=== PATIENT | male | born 1980 | race African-American/Black ===

== ENCOUNTER 2023-03-29 19:43 | Emergency (ER) | payer MEDICAID, OTHER, SELFPAY ==
--- NOTE | ~2023-03-29 | XR_ITS ---
EXAMINATION: XR CHEST 2 VIEWS CLINICAL INFORMATION: Chest pain. COMPARISON: None. TECHNIQUE: Frontal and lateral views of the chest were obtained. FINDINGS: The heart, great vessels, pulmonary vasculature and mediastinum are normal. The lungs show no focal infiltrate, effusion or pneumothorax. There is no acute osseous abnormality. XR/XR chest 2V IMPRESSION: No active cardiopulmonary disease.
--- NOTE | 2023-03-29 19:49 | ECG_ITS ---
Test Reason : chest pain Blood Pressure : / mmHG Vent. Rate : 100 BPM Atrial Rate : 100 BPM P-R Int : 158 ms QRS Dur : 076 ms QT Int : 320 ms P-R-T Axes : 058 060 043 degrees QTc Int : 412 ms Normal sinus rhythm Normal ECG No previous ECGs available Referred By: Hanna lAva Electronically Signed By:CASSI DORMAN
--- NOTE | 2023-03-29 20:01 | ED_ITS ---
HPI - Chest Pain General Chief Complaint: Chest Pain Stated Complaint: chest and back pain Time Seen by Provider: 03/29/23 22:31 Source: patient Mode of arrival: ambulatory History of Present Illness HPI narrative: This is a 42-year-old male who arrives with complaints of left-sided chest pain and states that each day he carries heavy equipment on the left side side he denies any association diaphoresis, nausea, dizziness and states that the pain does not worsen with deep breath. He otherwise denies any fever, chills, nausea, vomiting. Related Data Allergies Allergy/AdvReac Type Severity Reaction Status Date / Time No Known Allergies Allergy Verified 03/29/23 20:07 Review of Systems 2 Review of Systems: Pertinent positives and negatives as stated in HPI [facility] Past Medical History Source: nursing notes reviewed Social History Social History Smoked in Last 30 Days: No Use of substances other than those prescribed or required for medical reasons: No Advance Directives: No Advance Directives Information Provided: No Physical Exam 2 Vital Signs: Vital Signs: Last Vital Signs Temp 98.5 F 03/30/23 01:38 Pulse 72 03/30/23 01:38 Resp 17 03/30/23 01:38 BP 136/94 H 03/30/23 01:38 Pulse Ox 99 03/30/23 01:38 O2 Del Method Room Air 03/30/23 01:38 BMI result Body Mass Index 23.5 VITAL SIGNS: Reviewed. GENERAL: Well developed, well nourished, in no acute distress. HEAD: Normocephalic/atraumatic EYES: PERRLA, EOMI EARS: Ext canals without abnormality NOSE: Nares patent bilateral OROPHARYNX: no oral lesions noted, posterior pharynx clear NECK: Supple, no adenopathy LUNGS: Normal breath sounds. No adventitious sounds or accessory muscle use. SpO2<98> CARDIOVASCULAR: Regular rate and rhythm without noted murmurs ABDOMEN: Soft, non-tender, non-distended with bowel sounds. MUSCULOSKELETAL: No tenderness, deformities, or effusions noted on gross inspection. EXTREMITIES: No cyanosis, clubbing or edema. SKIN: Inspection of the skin reveals no rashes NEUROLOGIC: Alert and oriented x 4. Strength and sensation to light touch were grossly intact x 4. Course Course Course Narrative: This is a rapid medical exam. Deferred additional HPi, ROS, PE to primary provider. 42 yo male with no known medical history here with complaints of left sided chest pain with radiation to the back, non pleuritic, nonexertional x 2 weeks w/ no associated symptoms. Will check labs, EKG, CXR VSS Medications Administered Discontinued Medications Generic Name Dose Route Start Last Admin Trade Name Deena PRN Reason Stop Dose Admin Acetaminophen 975 mg 03/29/23 23:20 03/30/23 00:51 Acetaminophen 325 Mg Tablet PO 03/29/23 23:21 975 mg ONCE ONE Administration Ibuprofen 400 mg 03/29/23 23:20 03/30/23 00:51 Ibuprofen 400 Mg Tablet PO 03/29/23 23:21 400 mg ONCE ONE Administration Medical Decision Making Medical Decision Making [facility] Narrative: 42-year-old male with history and clinical presentation, DDX: Musculoskeletal pain, very low clinical suspicion for pneumonia, pneumothorax or ACS. I reviewed all investigations and hematologic indices demonstrate a mild decrease in leukocytes, no anemia and no thrombocytopenia. Chemistry indices negative for electrolyte or liver enzyme abnormalities, there is no GAURAV and troponin is undetectable. Chest x-ray negative for infiltrate and otherwise my interpretation is in agreement with radiology's impression. EKG is normal sinus rhythm without evidence of ST-elevation. Is my interpretation that patient is experiencing musculoskeletal pain as the pain has been ongoing for 2 weeks and troponin is undetectable without EKG changes and patient endorses a history of having to carry heavy equipment on the left shoulder. Patient received combination analgesics and was discharged. Differential Diagnosis Differential Diagnoses: The differential diagnosis associated with the presentation includes Please see the discussion above Admission/Observation Consideration of admission/observation: Escalation of care including admission/observation considered Please see the discussion above Lab Data [facility] Lab Attestation statement: I reviewed the patient's lab results. Please see the discussion above 03/29/23 20:49 03/29/23 20:49 Labs: Lab Results 03/29/23 Range/Units 20:49 WBC 4.4 L (4.8-10.8) X10*3/uL RBC 5.57 (4.60-5.80) X10*6/uL Hgb 14.1 (14.0-18.0) g/dl Hct 40.6 L (42.0-52.0) % MCV 72.9 L (80.0-98.0) fL MCH 25.3 L (27.0-33.0) pg MCHC 34.7 (31.0-36.0) g/dl RDW 14.1 (11.0-16.0) % Plt Count 200 (160-400) X10*3/uL MPV 9.9 (9.4-12.4) fL Immature Gran % (Auto) 0.0 (0.0-0.4) % Neut % (Auto) 51.0 (45-73) % Lymph % (Auto) 36.8 (20-40) % Crowley % (Auto) 10.1 (2-11) % Eos % (Auto) 1.6 (0-4) % Baso % (Auto) 0.5 (0-2) % Lymph # (Auto) 1.6 (1.2-4.9) X10*3/uL Crowley # (Auto) 0.4 (0.1-1.2) X10*3/uL Eos # (Auto) 0.1 (0.0-0.4) X10*3/uL Baso # (Auto) 0.0 (0.0-0.2) X10*3/uL Abs Immat Gran (auto) 0.00 (0.00-0.03) X10*3/uL Absolute Neuts (auto) 2.2 (2.0-8.3) x10*3/uL Absolute Nucleated RBC 0.000 (0.0-0.012) X10*3/uL Nucleated RBC % (auto) 0.0 (0.0-0.2) /100WBC Sodium 142 (135-145) mmol/L Potassium 4.7 (3.3-5.1) mmol/L Chloride 105 (96-108) mmol/L Carbon Dioxide 31 H (22-29) mmol/L Anion Gap 11 L (12-20) BUN 13 (9-16) mg/dL Creatinine 1.15 (0.5-1.4) mg/dL Estim Creat Clear Calc 88.2 Estimated GFR > 60 Random Glucose 95 (60-115) mg/dL Calcium 9.8 (8.4-10.2) mg/dL Total Bilirubin 0.3 (0.0-1.0) mg/dL Direct Bilirubin 0.1 (0.0-0.5) mg/dL AST 25 (5-37) U/L ALT 32 (0-40) U/L Alkaline Phosphatase 126 H (39-117) U/L Troponin I High Sens < 2.7 (<3.5-35.0) ng/L Total Protein 7.3 (6.5-8.0) g/dL Albumin 4.0 (3.5-5.0) g/dL Independent Interpretation I performed an independent interpretation of an: EKG Interpretation: Normal sinus rhythm, HR-100, no STEMI, NC/QRS/QTC is within normal limits. Radiology Impression Discussion of test interpretation with radiology: I have reviewed the radiologist's reading. Radiologist Impression: Please see the discussion above Discharge Plan Discharge Clinical Impression: Atypical chest pain, Musculoskeletal pain Instructions: Musculoskeletal Pain (ED), Chest Wall Pain (ED) Additional Instructions: 1. Tylenol 1000 mg, orally, every 6 hours as needed for pain control. Do not exceed 4000 mg within 24 hours. 2. Ibuprofen 400 mg, orally with milk or food, every 6 hours as needed for pain control. 3. Please follow-up with your primary care doctor in the next 1-2 days for re- evaluation and outpatient. Return to the ER for any worsening symptoms.
[2023-03-29 20:04] VITALS: BP 143/84; PULSE 96; RESP 16; TEMP 37.1; O2SAT 98; BMI 23.5
[2023-03-29 20:53] LABS: MANUAL DIFF FLAG NO
[2023-03-29 21:02] LABS: Basophils Percent Auto 0.5 % (0-2); Eosinophils Absolute Auto 0.1 X10*3/uL (0.0-0.4); Eosinophils Percent Auto 1.6 % (0-4); Hematocrit 40.6 % (42.0-52.0); Hemoglobin 14.1 g/dl (14.0-18.0); Lymphocytes Absolute Auto 1.6 X10*3/uL (1.2-4.9); Lymphocytes Percent Auto 36.8 % (20-40); Mean Corpuscular HGB Conc 34.7 g/dl (31.0-36.0); Mean Corpuscular Hemoglobin 25.3 pg (27.0-33.0); Mean Corpuscular Volume 72.9 fL (80.0-98.0); Mean Platelet Volume 9.9 fL (9.4-12.4); Monocytes Absolute Auto 0.4 X10*3/uL (0.1-1.2); Monocytes Percent Auto 10.1 % (2-11); Neutrophils Absolute Auto 2.2 x10*3/uL (2.0-8.3); Platelet Count 200 X10*3/uL (160-400); Red Blood Count 5.57 X10*6/uL (4.60-5.80); Red Cell Distribution Width 14.1 % (11.0-16.0); White Blood Count 4.4 X10*3/uL (4.8-10.8)
[2023-03-29 21:13] LABS: Alanine Aminotransferase 32 U/L (0-40); Alkaline Phosphatase 126 U/L (39-117); Anion Gap 11 (12-20); Aspartate Amino Transferase 25 U/L (5-37); Bilirubin Direct 0.1 mg/dL (0.0-0.5); Bilirubin Total 0.3 mg/dL (0.0-1.0); Blood Urea Nitrogen 13 mg/dL (9-16); Calcium 9.8 mg/dL (8.4-10.2); Carbon Dioxide 31 mmol/L (22-29); Chloride 105 mmol/L (96-108); Creatinine Clr Calc Pharmacy 88.2; Estimated Glomerular Filt Rate > 60; Glucose Random 95 mg/dL (60-115); Potassium 4.7 mmol/L (3.3-5.1); Sodium 142 mmol/L (135-145); Total Protein 7.3 g/dL (6.5-8.0)
[2023-03-29 21:22] LABS: Troponin-I High Sensitivity < 2.7 ng/L (<3.5-35.0)
[2023-03-30 00:11] VITALS: RESP 18
[2023-03-30] MEDS: Ibuprofen 400 MG TABLET PO (00:51)
[2023-03-30] MEDS: Acetaminophen 325 MG TABLET 975 MG PO (00:51)
[2023-03-30 01:38] VITALS: BP 136/94; PULSE 72; RESP 17; TEMP 36.9; O2SAT 99
[2023-03-30 04:16] VITALS: BP 131/88; PULSE 60; RESP 12; O2SAT 100
== END 2023-03-30 04:19 | disposition home or self-care (01) ==
PROVIDERS: Nurse Practitioner Family; Emergency Provider Student in an Organized Health Care Education/Training Program
DX: R07.89 Other chest pain (principal); M54.50 Low back pain, unspecified; M79.10 Myalgia, unspecified site; Z79.899 Other long term (current) drug therapy
CPT/HCPCS: 36415; 71046; 80048; 80076; 84484; 85025; 93005; 99283; 99285